=== PATIENT | male | born 1935 | race Two or more races ===

== ENCOUNTER → 2017-01-08 | Outpatient (CLI) | payer MEDICARE, OTHER ==
[~2017-01-08] MED LIST: REGADENOSON 0.4 MG/5 ML DISP.SYRIN. IV ONE
--- NOTE | 2017-01-08 13:57 | RAD ---
APPROVED REPORT Test Type: Pharmacological Stress Nurse/Tech: Nimisha Lopez R.N. Test Indications: chestpain Cardiac History: htn, DM Medications: See Electronic Medical Record Medical History: See Electronic Medical Record Resting ECG: SR Resting Heart Rate: 82 bpm Resting Blood Pressure: 139/75mmHg Pretest Chest Pain: No chest pain Nurse/Tech Notes S1S2, lungs CTA Consent: The procedure was explained to the patient in lay terms. Informed consent was witnessed. Tahir eout was entered into [employer]. History and Stress Test performed by RICHA Hopson Pharm. Details Pharmacologic stress testing was performed using 0.4mg per 5ml of regadenoson given intravenously ove r 7-10 seconds. Stress Symptoms slight sob which resolved by end of recovery time POST EXERCISE Reason for Termination: Infusion complete Max HR: 100 bpm Max Blood Pressure: 143/68mmHg Blood Pressure response to exercise: Normal blood pressure response during stress. Heart Rate response to exercise: wnl Chest Pain: No. Arrhythmia: No. ST Change: No. INTERPRETATION Stress EKG Conclusion: No evidence of stress induced EKG changes. Imaging Protocol IMAGE PROTOCOL: Rest Tc-99m/stress Tc-99m 1 day Rest: Stress: Viability: Radiopharm.Tc99m [id number] Sestamibi Dose11.9mCi 37.9mCi Img Date 01/08/2017 01/08/2017 Inj-Img [id number]. 60min. Rest Admin Site:IV - Left AntecubitalAdministrator:RICHA Hopson Stress Admin Site: IV - Left AntecubitalAdministrator: RICHA Hopson STRESS DATA End Diast. Vol.48.0mlAv. Heart Rate96.0bpm End Syst. Vol.4.0mlCO Index BSA0.0L/min Myocardial Mass95.0gEject. Zqzppqwp42.0% Stress Rates Pk. Fill Rate3.19EDV/secLVtime Pk. Fill 79.61msec Pk. Empty Rate5.22ESV/secLVtime Pk. Lknua310.17msec 11/27 Pk. Fill2.26EDV/sec Stress Scores Regional WT0.00Summed WT1.00 Regional WM0.00Summed WM1.00 The rest and stress images show normal perfusion, normal contraction and thickening. LV Perf. Quant 17 Seg. SSS1.00 17 Seg. SRS0.00 17 Seg. SDS1.00 Stress Defect Extent (% LAD)0.00Rest Defect Extent (% LAD)0.00Rev. Defect Extent (% LAD)0.00 Stress Defect Extent (% LCX) 7.50Rest Defect Extent (% LCX)0.00Rev. Defect Extent (% LCX)6.30 Stress Defect Extent (% RCA)0.00Rest Defect Extent (% RCA)0.00Rev. Defect Extent (% RCA)0.00 Stress Defect Extent (% GENNARO)1.30Rest Defect Extent (% GENNARO)0.00Rev. Defect Extent (% GENNARO)1.10 Other Information Quality:Good Risk Assessment: Low Risk Conclusion 1. No evidence of stress induced EKG changes. 2. Normal myocardial perfusion at stress/rest 3. Low risk study. Normal EF at > 60%
== END | disposition home or self-care (01) ==
LOC: NM 07:25
PROVIDERS: ATTEND Internal Medicine Cardiovascular Disease
DX: R07.9 Chest pain, unspecified (principal)
CPT/HCPCS: 78452; 93017; 96374; 96375; 96376; A9500; J2785